=== PATIENT | female | born 1960 | race Caucasian/White ===

== ENCOUNTER 2020-01-13 09:43 | Outpatient (CLI) | payer BC, OTHER ==
--- NOTE | 2020-01-15 13:09 | EKG ---
Test Reason : Blood Pressure : / mmHG Vent. Rate : 064 BPM Atrial Rate : 064 BPM P-R Int : 148 ms QRS Dur : 102 ms QT Int : 424 ms P-R-T Axes : 016 083 059 degrees QTc Int : 437 ms Normal sinus rhythm Incomplete right bundle branch block Borderline ECG No previous ECGs available Confirmed by JUANITA MENDOZA MD ([id number]) on 01/15/2020 1:08:45 PM Referred By: MASSIEL Confirmed By:JUANITA MENDOZA MD
== END 2020-01-13 09:44 | disposition home or self-care (01) ==
LOC: LABBT 09:43
PROVIDERS: ATTEND Family Medicine
DX: Z01.810 Encounter for preprocedural cardiovascular examination (principal); N20.0 Calculus of kidney
CPT/HCPCS: 80048; 81001; 85025; 85610; 85730; 87086; 87635; 93005; 93010; U0003

== ENCOUNTER 2020-01-18 07:13 | Day surgery (SDC) | payer BC ==
[2020-01-13 14:49] VITALS: BMI 26.6
[2020-01-18] MEDS ORDERED: cefTRIAXone\\ROCEPHIN 1 GM VIAL ONE (07:48)
[2020-01-18] MEDS ORDERED: Sodium Chloride 0.9% 100 ML ONE (07:48)
--- NOTE | 2020-01-18 08:43 | RAD ---
XR Abdomen 1 View/KUB History: Preop evaluation Comparison: None. Findings: Hypodensity calculus projects over the right renal collecting system measuring up to 5-6 mm . No calculus is seen projecting over the left renal collecting system. No ureteral calculus is definitively seen. Surgical clips over the left hemiabdomen. Right hip arthroplasty. No acute osseous abnormality. Moder ate facet arthrosis lower lumbar spine. Impression: 5-6 mm calcification projecting over the right renal collecting system.
[2020-01-18] MEDS ORDERED: Iothalamate Meglumine 60% 50 ML VIAL FS ONE (10:06)
[2020-01-18] MEDS ORDERED: Midazolam HCl 2 mg/2 ml Vial ONE (10:11)
[2020-01-18] MEDS ORDERED: Ondansetron ODT 4 MG TAB ONE (10:17)
[2020-01-18] MEDS ORDERED: Fentanyl 100 MCG/2 ML VIAL ONE ×3 (10:17→12:26)
[2020-01-18] MEDS ORDERED: Ondansetron PF 4 MG/2 ML Vial ONE (10:44)
[2020-01-18] MEDS ORDERED: Glycopyrrolate 0.2 MG/ML 5 ML SYRINGE ONE (10:44)
[2020-01-18] MEDS ORDERED: Dexamethasone 20 MG/5 ML VIAL ONE (10:44)
[2020-01-18] MEDS ORDERED: Lidocaine 1% PF 5 ML VIAL ONE (10:44)
[2020-01-18] MEDS ORDERED: PROPOFOL 200 MG/20 ML VIAL ONE (10:44)
[2020-01-18] MEDS ORDERED: Rocuronium Bromide 10 MG/ML (10ML VIAL) ONE (10:44)
[2020-01-18] MEDS ORDERED: B & O ONE (10:51)
[2020-01-18] MEDS ORDERED: Oxybutynin 5 MG TAB ONE (11:44)
[2020-01-18] MEDS ORDERED: Phenazopyridine HCl 97.5 MG TABLET ONE (11:45)
--- NOTE | 2020-01-18 12:10 | RAD ---
EXAM: Retrograde IVP HISTORY: Right renal stone COMPARISON: None FINDINGS/IMPRESSION: Limited intraoperative fluoroscopic views of the retrograde IVP were submitted f or interpretation. There is no evidence of hydronephrosis. No obvious filling defects are seen. Patient has a right hip prosthesis.
[2020-01-18] MEDS ORDERED: Promethazine HCl 25 MG/ML VIAL ONE (13:07)
[2020-01-18] MEDS ORDERED: diphenhydrAMINE 25 MG CAP ONE (13:42)
[2020-01-18] MEDS ORDERED: HYDROcodone/Acetaminophen 5/325 mg Tablet ONE (13:42)
--- NOTE | 2020-01-18 16:43 | OP ---
DATE OF PROCEDURE: 01/18/2020 PRIMARY CARE PHYSICIAN: Mercy Cruz MD PREOPERATIVE DIAGNOSES: 1. A 59-year-old female with history of chronic intermittent right upper quadrant abdominal pain. 2. History of nonobstructing right 9-mm renal calculi with no hydronephrosis. POSTOPERATIVE DIAGNOSES: 1. A 59-year-old female with history of chronic intermittent right upper quadrant abdominal pain. 2. History of nonobstructing right 9-mm renal calculi with no hydronephrosis. PROCEDURES PERFORMED: Cystoscopy, right retrograde pyelogram, 4.8 x 26 double-J ureteral stent with distal tail in situ, dilation of distal right intramural ureter, flexible ureteroscopy, pyeloscopy, laser lithotripsy, basket extraction of stone debris. ANESTHESIA: LMA, general. COMPLICATIONS: None apparent. DISPOSITION: To recovery room in stable condition. SPECIMEN: Stone fragment for chemical analysis. ESTIMATED BLOOD LOSS: Minimal. INTRAOPERATIVE FINDINGS: 9-to 10-mm right upper pole renal calculi, INDICATIONS FOR PROCEDURE AND HISTORY: Ms. Bedoya is a 59-year-old female, who presented for an urgent referral due to right upper quadrant abdominal discomfort. She was previously followed by Dr. Guardado in [facility]. She presented to [place], in which CT which I reviewed myself demonstrating a 9-mm nonobstructing right upper pole renal calculi. The patient does have morbid obesity, and significant stone to skin distance is noted. She presents with intermittent right upper quadrant abdominal pain, related pain is 10/10, variability with 3/10 on the pain scale. She has chronic nausea. After I reviewed her CT scan, I informed the patient that her stone is nonobstructing and is unlikely causing her discomfort with nausea, and right upper quadrant abdominal discomfort. As the stone is near 1 cm, we did discuss options of elective treatment of her stone calculi, with full understanding that her pain that she presents may continue despite stone treatment, moreover expectations of flank pain, irritative stent discomfort has been fully discussed with the patient. Options of observation as the stone is nonobstructing, has been discussed with her in detail and she requests to proceed with stone treatment. We discussed options of ESWL, however, given body habitus, increased stone free rate with ureteroscopy, laser lithotripsy has been discussed. She has been fully informed regarding risks and benefits of each modality and desires to proceed with more definitive surgery, i.e., laser lithotripsy. Risks and complications of procedures were discussed with the patient including, but not limited to, bleeding, pain, infection, injury to adjacent organs, ureteral renal kidney injury. All questions answered to her satisfaction. She desired to proceed without reservation. DESCRIPTION OF PROCEDURE: After an informed consent was signed, the patient was taken to the operating room, placed in a dorsal lithotomy position with the genital area prepped and draped in the usual surgical sterile fashion. A 21-Indonesian cystoscope was utilized for cystoscopy, which demonstrated normal urethra, bladder mucosa. Bilateral UOs were in normal orthotopic position. A 5-Indonesian open- ended catheter was utilized to intubate the right UO and a retrograde pyelogram was performed demonstrating the stone in the right upper pole with no evidence of hydronephrosis. A 0.035 Sensor wire was placed into the right upper pole and subsequently, we dilated the intramural ureter with a 4-cm 12-Indonesian balloon dilator. After subsequent dilatation, a 10-Indonesian dual-lumen access was able to be passed into the right proximal ureter, and a second safety wire of 0.035 Super Stiff wire was placed into the right upper pole. Subsequently, we passed a 15-Indonesian navigator without significant issues to the level of the proximal ureter with minimal resistance. At this time, the flexible ureteroscope was then advanced and the stone was easily visualized. It appeared to be spiculated, exiting the right upper pole calyx. Intraoperative photos were taken. Using a 200 micron ball- tip laser fiber with 1.0 joule setting, we laser lithotripsied the stone into multiple tiny fragments. I did retrieve some fragments for chemical analysis. At the end of the procedure, the stone burden had cleared, what remains was tiny dust-like caliber, which should pass without difficulty. A 4.8 x 26 double-J ureteral stent was passed over the safety wire and the wire subsequently removed and bladder completely emptied. As she has issues with chronic pain, I did elect to put a 4.8-Indonesian stent, which she tolerated the procedure uneventfully. B and O suppository were provided for bladder spasm, and she is discharged with Omnicef for course of 7 days, Colace p.r.n. The patient requesting refill for Zofran due to chronic nausea 8 mg #30, tramadol 50 mg, Azo, Ditropan 10 mg XL one p.o. daily. She is in full understanding that tramadol can cause itching and she is willing to take Benadryl p.r.n. She will follow up with me next , January 25 for cysto, stent pull under local. Job ID: [id number] [id number]
== END 2020-01-18 14:30 | disposition home or self-care (01) ==
LOC: SDC 07:13
PROVIDERS: ATTEND Urology
PROC: 0TC38ZZ Extirpation of Matter from Right Kidney Pelvis, Via Natural or Artificial Opening Endoscopic (ICD-10-PCS; principal; 2020-01-18)
PROC: 0T768DZ Dilation of Right Ureter with Intraluminal Device, Via Natural or Artificial Opening Endoscopic (ICD-10-PCS; principal; 2020-01-18)
DX: N20.0 Calculus of kidney (principal); R35.0 Frequency of micturition; E78.5 Hyperlipidemia, unspecified; J45.909 Unspecified asthma, uncomplicated; K21.9 Gastro-esophageal reflux disease without esophagitis; Z79.82 Long term (current) use of aspirin; Z79.899 Other long term (current) drug therapy; Z88.5 Allergy status to narcotic agent; Z88.1 Allergy status to other antibiotic agents; Z88.2 Allergy status to sulfonamides; Z88.8 Allergy status to other drugs, medicaments and biological substances
CPT/HCPCS: 74018; 74420; 82365; 88300; J0696; J1100; J2250; J2405; J2550; J2704; J3010; J3490; Q0162; Q0163